=== PATIENT | female | born 1980 | race Caucasian/White ===

== ENCOUNTER → 2019-02-24 | Outpatient (CLI) | payer OTHER ==
--- NOTE | 2019-02-25 12:03 | PCVCIMAG ---
APPROVED REPORT Study performed: 02/24/2019 12:04:43 EXAM: Comprehensive 2D, Doppler, and color-flow Echocardiogram Patient Location: Echo lab Room #: 2Status: routine BSA: 1.67 HR: 62 bpmBP: 110/68 mmHg Rhythm: NSR Other Information Study Quality: Good Risk Factors: Cardiac Risk Factors: Smoking, Hyperlipidemia Indications Dyspnea Chest Pain 2D Dimensions IVSd: 8.92 (7-11mm)LVOT Diam: 21.30 (18-24mm) LVDd: 47.98 mm PWd: 7.82 (7-11mm)Ascending Ao: 23.33 (22-36mm) LVDs: 26.42 (25-40mm) Left Atrium: 34.16 (27-40mm) Aortic Root: 22.30 mm LV Single Plane 4CH: 59.04 % LV Single Plane 2CH: 60.83 % Biplane EF: 61.6 % Volumes Left Atrial Volume (Systole) Single Plane 4CH: 43.59 mLSingle Plane 2CH: 32.93 mL Biplane LA Volume: 40.00 mLLA ESV Index: 24.00 mL/m2 Aortic Valve AoV Peak Grady.: 1.39 m/s AO Peak Gr.: 7.70 mmHgLVOT Max P.72 mmHg LVOT Max V: 1.20 m/s DAVID Vmax: 3.07 cm2 Mitral Valve E/A Ratio: 1.4 MV Decel. Time: 147.47 ms MV E Max Grady.: 0.83 m/s MV A Grady.: 0.58 m/s IVRT: 79.58 ms TDI E/Lateral E': 6.92E/Medial E': 7.55 Medial E' Grady.: 0.11 m/s Lateral E' Grady.: 0.12 m/s Pulmonary Valve PV Peak Grady.: 0.89 m/sPV Peak Gr.: 3.15 mmHg Pulmonary Vein P Vein S: 0.57 m/sP Vein A: 0.32 m/s P Vein D: 0.70 m/sP Vein A Dur.: 93.4 msec P Vein S/D Ratio: 0.81 Tricuspid Valve TR Peak Grady.: 1.47 m/s TR Peak Gr.: 8.59 mmHg TV Vmax: 0.84 m/sPA Pressure: 16.00 mmHg Left Ventricle The left ventricle is normal size. There is normal LV segmental wall motion. There is normal left ventricular wall thickness. Left ventricular systolic function is normal. The left ventricular ejection fraction is within the normal range. LVEF is 60-65%. Right Ventricle The right ventricle is normal size. The right ventricular systolic function is normal. Atria The left atrium size is normal. The right atrium size is normal. Aortic Valve The aortic valve is normal in structure. No aortic regurgitation is present. There is no aortic valvular stenosis. Mitral Valve The mitral valve is normal in structure. There is no mitral valve regurgitation noted. No evidence of mitral valve stenosis. Tricuspid Valve The tricuspid valve is normal in structure. Mild tricuspid regurgitation. No pulmonary hypertension. Pulmonic Valve The pulmonary valve is normal in structure. There is no pulmonic valvular regurgitation. Great Vessels The aortic root is normal in size. The ascending aorta is normal in size. Aortic arch is normal in caliber. IVC is normal in size and collapses >50% with inspiration. Pericardium There is no pericardial effusion. There is no pleural effusion. <Conclusion> The left ventricle is normal size. LVEF is 60-65%. The aortic valve is normal in structure. The mitral valve is normal in structure. The tricuspid valve is normal in structure. The pulmonary valve is normal in structure. There is no pericardial effusion.
--- NOTE | 2019-03-21 13:16 | PCVCIMAG ---
APPROVED REPORT Patient Location: Echo lab-[facility] Room #: 2 Stress Nurse: Ashia Schroeder RN INDICATIONS: chest pain,dyspnea, tobacco use,dyslipidemia The patient exercised according to the SIDNEY protocol for 11:59 mins; achieving a work level of 13.4 METS. The resting heart rate of 70 bpm molly to a maximum heart rate of 169 bpm. This value represent 93% of the maximal, age-predicted heart rate. The resting blood pressure of 110/68 mmHg, molly to a maximum blood pressure of 190/70 mmHg. The exercise test was stopped due to fatigue. Conclusion 1. Subjectively negative for ischemia 2. At the cardiac review negative for ischemia 3. Satisfactory functional capacity 4. No dysrhythmias provoked by exercise
== END | disposition home or self-care (01) ==
LOC: PCVCIMAG 12:10
PROVIDERS: ATTEND Internal Medicine
DX: I36.1 Nonrheumatic tricuspid (valve) insufficiency (principal); R07.9 Chest pain, unspecified; R06.00 Dyspnea, unspecified; E78.5 Hyperlipidemia, unspecified; Z88.8 Allergy status to other drugs, medicaments and biological substances
CPT/HCPCS: 93017; 93306